=== PATIENT | female | born 1965 | race American Indian/Alaskan Native ===

== ENCOUNTER 2017-11-17 14:06 | Emergency (ER) | payer SELFPAY ==
[2017-11-17] MEDS: NORVASC PO ONE (15:54)
[2017-11-17 17:11] VITALS: BP 216/127
--- NOTE | 2017-11-17 17:17 | Emergency Department Report ---
HPI - General Chief Complaint: Extremity Injury, Lower Time Seen by Provider: 11/17/17 16:22 - HPI HPI: Patient is a 52-year-old female with a history of hypertension not controlled who presents to the ED complaining of lower leg pain times today. Patient states she was at the store with her mother when her mother tripped on a rug and while mom was falling patient states that her leg was hit during the fall. Patient states that in order to prevent herself from falling and she held on to a nearby aisle for support and felt pain on the lateral aspect of her knee since due to her mom falling on her leg. Patient denies any fever assess chills /nausea/vomiting/chest pains or shortness of breath/dyspnea/headache/blurred vision. 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 DOUBLE MASTECTOMY - Social History Smoking Status: Never Smoker Substance Use Type: None - Medications Home Medications: Home Medications Medication Instructions Recorded Confirmed Last Taken Type Cyclobenzaprine [Flexeril] 10 mg PO QHS PRN #20 tablet 11/17/17 Unknown Rx Ibuprofen [Motrin] 800 mg PO Q8HR PRN #30 tablet 11/17/17 Unknown Rx amLODIPine [Norvasc] 10 mg PO DAILY #40 tab 11/17/17 Unknown Rx ED Review of Systems ROS: Stated complaint: LEG PAIN Other details as noted in HPI Constitutional: denies: chills, fever Eyes: denies: eye pain, eye discharge, vision change ENT: denies: ear pain, throat pain Respiratory: denies: cough, shortness of breath, wheezing Cardiovascular: denies: chest pain, palpitations Endocrine: no symptoms reported Gastrointestinal: denies: abdominal pain, nausea, diarrhea Genitourinary: denies: urgency, dysuria, discharge Musculoskeletal: arthralgia, myalgia. denies: back pain, joint swelling Skin: denies: rash, lesions Neurological: denies: headache, weakness, paresthesias Psychiatric: denies: anxiety, depression Hematological/Lymphatic: denies: easy bleeding, easy bruising Physical Exam - Physical Exam Vital Signs: Vital Signs 11/17/17 11/17/17 11/17/17 14:12 15:30 15:54 Temperature 97.7 F Pulse Rate 82 87 Respiratory 20 Rate Blood Pressure 255/149 203/96 203/96 Blood Pressure [Left] O2 Sat by Pulse 100 Oximetry 11/17/17 17:10 Temperature Pulse Rate Respiratory 16 Rate Blood Pressure Blood Pressure 216/127 [Left] O2 Sat by Pulse 100 Oximetry Physical Exam: GENERAL: Alert and oriented x3, no apparent distress, Normal Gait, atraumatic. HEAD: Head is normocephalic and a-traumatic. NECK: Supple. Non edematous, No carotid bruits. No lymphadenopathy or thyromegaly. No C-spine tenderness LUNGS: Symetrical with respiration, No wheezing, no rales or crackles, CTAB. HEART: S1, S2 present, regular rate and rhythm without murmur, no rubs, no gallops. Non tender to palpation BACK: Full range of motion, no spinal tenderness, nontender to palpation. EXTREMITIES/MUSCULOSKELETAL: No cyanosis, clubbing, rash, lesions or edema. Full ROM bilaterally. LE and UE 5+ strength bilaterally, no pain with flexion and extension of the knee. Mild tenderness to palpation of the anterior knee, no ecchymosis, no swelling NEUROLOGIC: The patient is cooperative with no focal neurologic deficits. Normal speech. Normal sensation in bilateral upper and lower extremities, No loss of sensation, . SKIN: Warm and dry, No lesions, No ulceration or induration present. ED Course Vital Signs 11/17/17 11/17/17 11/17/17 14:12 15:30 15:54 Temperature 97.7 F Pulse Rate 82 87 Respiratory 20 Rate Blood Pressure 255/149 203/96 203/96 Blood Pressure [Left] O2 Sat by Pulse 100 Oximetry 11/17/17 17:10 Temperature Pulse Rate Respiratory 16 Rate Blood Pressure Blood Pressure 216/127 [Left] O2 Sat by Pulse 100 Oximetry ED Medical Decision Making - Medical Decision Making 52 year-old female presents status post injury to knee ED course: Blood pressure elevated during ED stay Patient received amlodipine while in ED. Patient refused to have blood work done and she states that her blood pressures always usually sometimes that high due to the fact that she has not been taking her blood pressure medication and has been doing holistic medicine to bring down her blood pressure She denies any headache, chest pain, shortness of breath, dizziness or any other symptoms Patient is able to flex and extend her knee with no problem. I discussed with patient the importance of control of blood pressure which a fall controlled can lead to stroke, heart attack and any other worsening comes I discussed the patient to follow up with her primary care physician to manage her blood pressure. I discussed with her how given her prescription for amlodipine which she is to start taking immediately and daily. Critical care attestation.: If time is entered above; I have spent that time in minutes in the direct care of this critically ill patient, excluding procedure time. ED Disposition Clinical Impression: Uncontrolled hypertension Knee pain, right Qualifiers: Chronicity: acute Qualified Code(s): M25.561 - Pain in right knee Disposition: TO HOME OR SELFCARE Is pt being admited?: No Does the pt Need Aspirin: No Condition: Stable Instructions: Musculoskeletal Pain (ED), Hypertension (ED), Arthralgia (ED) Additional Instructions: Make sure to follow up with the primary care physician as discussed discussed management of blood pressure Take all your medications as you've been prescribed. Make sure you take your blood pressure medication. It is very imperative in reporting that she do If you have any worsening symptoms or develop new symptoms please return to ED immediately. Prescriptions: Cyclobenzaprine [Flexeril] 10 mg PO QHS PRN #20 tablet PRN Reason: Muscle Spasm amLODIPine [Norvasc] 10 mg PO DAILY #40 tab Ibuprofen [Motrin] 800 mg PO Q8HR PRN #30 tablet PRN Reason: Pain Referrals: PRIMARY CARE, [Primary Care Provider] - 3-5 Days YENNY DE LA CRUZ MD [Referring] - 3-5 Days RASTA KESSLER MD [Referring] - 3-5 Days [facility] [Outside] - 3-5 Days [facility] [Outside] - 3-5 Days [facility] [Outside] - 3-5 Days Forms: Work/School Release Form(ED) Time of Disposition: 17:55
[2017-11-17] MEDS: MOTRIN PO ONE (18:02)
[2017-11-17] MEDS: CATAPRES PO ONE (18:03)
== END 2017-11-17 19:05 | disposition home or self-care (01) ==
LOC: ED 14:06
DX: M25.561 Pain in right knee (principal); I10 Essential (primary) hypertension; Z91.040 Latex allergy status
CPT/HCPCS: 99282